=== PATIENT | male | born 1960 ===

== ENCOUNTER → 2020-06-17 08:17 | Outpatient (CLI) | payer OTHER | END | disposition home or self-care (01) | LOC: LAB 08:17 | DX: H16.001 Unspecified corneal ulcer, right eye (principal) ==

== ENCOUNTER 2022-09-12 15:38 | Inpatient (IN) | payer OTHER ==
[~2022-09-12] VITALS: Ht 160 cm; Wt 116.6 kg
[2022-09-12] MEDS ORDERED: CANDESARTAN-HC1 EAC1 PO (17:21)
[2022-09-12] MEDS ORDERED: ATORVASTATIN CA10 MG PO (17:22)
[2022-10-24] MEDS ORDERED: PROTONIX40 MG PO (15:09)
[2022-10-24] MEDS ORDERED: ELIQUIS2.5 MG PO (15:09)
[2022-10-24] MEDS ORDERED: CARAFATE1 GM PO (15:09)
[2022-10-24] MEDS ORDERED: PRE PROTEIN1 EACH PO (15:09)
[2022-10-24] MEDS ORDERED: PREDNISONE 5MG PO (15:09)
[2022-10-24] MEDS ORDERED: INTEGRA PLUS C1 EACH PO (15:09)
[2022-10-24] MEDS ORDERED: Neurin-Sl Tablet Sl SL (15:09)
[2022-10-24] MEDS ORDERED: Lipitor 10MG TABLET PO (15:09)
[2022-10-24] MEDS ORDERED: B Complex PO (15:09)
== END 2022-10-24 18:38 | disposition home or self-care (01) | DRG 570 ==
LOC: ER 15:38 → MEDI 22:16 → MEDJ 09-24 16:18 → MEDI 09-24 16:35
PROVIDERS: Emergency Medicine; Internal Medicine; Internal Medicine Geriatric Medicine; Internal Medicine Infectious Disease; Internal Medicine Nephrology; ADMIT Internal Medicine; ATTEND Internal Medicine
PROC: B54DZZZ Ultrasonography of Bilateral Lower Extremity Veins (ICD-10-PCS; 2022-09-12)
PROC: 0JDQ0ZZ Extraction of Right Foot Subcutaneous Tissue and Fascia, Open Approach (ICD-10-PCS; 2022-09-13)
PROC: 02HV33Z Insertion of Infusion Device into Superior Vena Cava, Percutaneous Approach (ICD-10-PCS; 2022-09-14)
PROC: BW24ZZZ Computerized Tomography (CT Scan) of Chest and Abdomen (ICD-10-PCS; 2022-09-16)
PROC: 4A12X4Z Monitoring of Cardiac Electrical Activity, External Approach (ICD-10-PCS; 2022-09-16)
PROC: B24BZZZ Ultrasonography of Heart with Aorta (ICD-10-PCS; 2022-09-19)
PROC: B54NZZZ Ultrasonography of Left Upper Extremity Veins (ICD-10-PCS; 2022-09-20)
PROC: 0JBQ0ZZ Excision of Right Foot Subcutaneous Tissue and Fascia, Open Approach (ICD-10-PCS; principal; 2022-09-21)
PROC: CF1C1ZZ Planar Nuclear Medicine Imaging of Hepatobiliary System, All using Technetium 99m (Tc-99m) (ICD-10-PCS; 2022-09-22)
PROC: 0JBN0ZZ Excision of Right Lower Leg Subcutaneous Tissue and Fascia, Open Approach (ICD-10-PCS; 2022-09-26)
PROC: 0DB68ZX Excision of Stomach, Via Natural or Artificial Opening Endoscopic, Diagnostic (ICD-10-PCS; 2022-09-29)
PROC: 0DB78ZX Excision of Stomach, Pylorus, Via Natural or Artificial Opening Endoscopic, Diagnostic (ICD-10-PCS; 2022-09-29)
PROC: CD271ZZ Tomographic (Tomo) Nuclear Medicine Imaging of Gastrointestinal Tract using Technetium 99m (Tc-99m) (ICD-10-PCS; 2022-09-29)
PROC: B54MZZZ Ultrasonography of Right Upper Extremity Veins (ICD-10-PCS; 2022-10-05)
PROC: 0JDQ0ZZ Extraction of Right Foot Subcutaneous Tissue and Fascia, Open Approach (ICD-10-PCS; 2022-10-14)
PROC: B54PZZZ Ultrasonography of Bilateral Upper Extremity Veins (ICD-10-PCS; 2022-10-18)
PROC: 30233N1 Transfusion of Nonautologous Red Blood Cells into Peripheral Vein, Percutaneous Approach (ICD-10-PCS; 2022-10-19)
DX: L03.115 Cellulitis of right lower limb (principal); A41.9 Sepsis, unspecified organism; T80.211A Bloodstream infection due to central venous catheter, initial encounter; K29.81 Duodenitis with bleeding; K80.00 Calculus of gallbladder with acute cholecystitis without obstruction; A04.8 Other specified bacterial intestinal infections; G81.91 Hemiplegia, unspecified affecting right dominant side; I13.0 Hypertensive heart and chronic kidney disease with heart failure and stage 1 through stage 4 chronic kidney disease, or unspecified chronic kidney disease; N17.9 Acute kidney failure, unspecified; N18.4 Chronic kidney disease, stage 4 (severe); E27.49 Other adrenocortical insufficiency; I82.623 Acute embolism and thrombosis of deep veins of upper extremity, bilateral; Z68.42 Body mass index [BMI] 45.0-49.9, adult; L02.415 Cutaneous abscess of right lower limb; L94.2 Calcinosis cutis; L08.9 Local infection of the skin and subcutaneous tissue, unspecified; D63.1 Anemia in chronic kidney disease; B96.5 Pseudomonas (aeruginosa) (mallei) (pseudomallei) as the cause of diseases classified elsewhere; B96.20 Unspecified Escherichia coli [E. coli] as the cause of diseases classified elsewhere; I89.0 Lymphedema, not elsewhere classified; E66.01 Morbid (severe) obesity due to excess calories; G47.33 Obstructive sleep apnea (adult) (pediatric); K57.30 Diverticulosis of large intestine without perforation or abscess without bleeding; K25.9 Gastric ulcer, unspecified as acute or chronic, without hemorrhage or perforation; D50.0 Iron deficiency anemia secondary to blood loss (chronic); I50.9 Heart failure, unspecified; E29.1 Testicular hypofunction; E31.8 Other polyglandular dysfunction; E03.8 Other specified hypothyroidism; I95.89 Other hypotension; K29.50 Unspecified chronic gastritis without bleeding

== ENCOUNTER 2022-12-09 08:32 | Outpatient (CLI) | payer OTHER ==
[~2022-12-09 08:32] MED LIST: ATORVASTATIN CA10 MG PO; B Complex PO; CANDESARTAN-HC1 EAC1 PO; CARAFATE1 GM PO; ELIQUIS2.5 MG PO; INTEGRA PLUS C1 EACH PO; Lipitor 10MG TABLET PO; Neurin-Sl Tablet Sl SL; PRE PROTEIN1 EACH PO; PREDNISONE 5MG PO; PROTONIX40 MG PO
== END 2022-12-09 08:33 | disposition home or self-care (01) ==
LOC: LAB 08:32
DX: L97.909 Non-pressure chronic ulcer of unspecified part of unspecified lower leg with unspecified severity (principal); L03.116 Cellulitis of left lower limb